=== PATIENT | male | born 1990 | race Two or more races ===

== ENCOUNTER 2021-05-06 20:02 | Emergency (ER) | payer OTHER, SELFPAY ==
--- NOTE | ~2021-05-06 | XR_ITS ---
EXAMINATION: XR ANKLE, LEFT CLINICAL INFORMATION: Twisting injury. Pain and swelling. COMPARISON: None TECHNIQUE: AP, lateral, and mortise views of the left ankle. FINDINGS: Lateral and anterior soft tissue swelling. No visible acute fracture or dislocation. Ankle mortise is congruent. Anterior process of the calcaneus, base of the 5th metatarsal appear intact. XR/XR ankle LT min 3V IMPRESSION: Prominent soft tissue swelling along the lateral anterior aspect of the ankle. No visible acute fracture or dislocation.
[2021-05-06 20:20] VITALS: BP 127/65; PULSE 94; RESP 16; TEMP 36.6; O2SAT 96; BMI 29.7
--- NOTE | 2021-05-06 22:30 | ED_ITS ---
HPI - Extremity Injury (Lower) General Chief Complaint: Extremity Injury, Lower Stated Complaint: ANKLE INJ Time Seen by Provider: 05/06/21 22:30 Source: patient Mode of arrival: ambulatory Limitations: no limitations History of Present Illness HPI Narrative: Patient is a 30-year-old male with no significant past medical history presenting after he twisted his ankle just prior to arrival. Patient states he was walking with a load of laundry, when he twisted his left ankle outward and then dropped filled basket of laundry on top of his left foot. He was unable to walk on immediately after but is okay if he walks on it gingerly now. He did not try anything to make it feel better and did not apply ice. Related Data Allergies Allergy/AdvReac Type Severity Reaction Status Date / Time bee pollen [BEE STINGS] Allergy Unknown UNKNOWN Unverified 08/13/20 18:57 mushroom Allergy Unknown UNKNOWN Unverified 08/13/20 18:57 shellfish derived Allergy Unknown UNKNOWN Unverified 08/13/20 18:57 [SHELLFISH DERIVED] Review of Systems Review of Systems: Yes all other systems are reviewed and are negative REPLACED BY [facility] Past Medical History Medical History No known health problems Social History Social History Advance Directives: No Advance Directives Information Provided: Yes Physical Exam Vital Signs: Vital Signs: Last Vital Signs Temp 98 F 05/06/21 20:20 Pulse 94 05/06/21 20:20 Resp 16 05/06/21 20:20 BP 127/65 05/06/21 20:20 Pulse Ox 96 05/06/21 20:20 Body Mass Index 29.7 Const: General: cooperative, healthy appearing, comfortable and no acute distress Nutritional Appearance: average body habitus Orientation/consciousness: patient oriented x3 HENMT: Head: Yes normal to inspection, Yes No palpable skull fracture present, Yes normocephalic and Yes atraumatic Resp: Effort & Inspection: normal respiratory effort and able to speak in complete sentences Neuro: General: patient oriented x3 Extrem: Left lower extremity: ankle Details: abnormal to inspection Details: other (Lateral malleolus swelling), tenderness Location: of the lateral malleolus, swelling Details: laterally and abnormal ROM Details: pain with active ROM and pain with passive ROM; no warmth, no abrasions, no lacerations, no ecchymosis and achilles tendon exam normal and foot Details: normal capillary refill, normal to inspection and toes with normal ROM; no tenderness MDM - Extremity Injury (Lower) Imaging Data ankle x-ray: Attestation: I personally reviewed and interpreted this imaging study as follows: Radiologist's impression: [address] [id number] ReportSigned Patient: Logan DorseyMR#: [id number]: 1990Acct:[id number]/Sex: 30 / MADM Date: 05/06/21Loc: HO.EDAttending Dr: Ordering Physician: Generic ED Physician Date of Service: 05/06/21 Procedure(s): XR ankle LT min 3V Accession Number(s): [id number] cc: Generic ED Physician~ EXAMINATION: XR ANKLE, LEFT CLINICAL INFORMATION: Twisting injury. Pain and swelling. COMPARISON: None TECHNIQUE: AP, lateral, and mortise views of the left ankle. FINDINGS: Lateral and anterior soft tissue swelling. No visible acute fracture or dislocation. Ankle mortise is congruent. Anterior process of the calcaneus, base of the 5th metatarsal appear intact. XR/XR ankle LT min 3V IMPRESSION: Prominent soft tissue swelling along the lateral anterior aspect of the ankle. No visible acute fracture or dislocation. Dictated By:SERA PA MDSigned By:<Electronically signed by SERA PA MD in OV>05/06/21 2100 DD/ 2030TD/TT: Regional Production Manager: LAY Discharge Plan Discharge Clinical Impression: Ankle sprain and strain Patient Disposition: Home, Self-Care Instructions: Ankle Sprain (ED) Additional Instructions: As discussed, if your pain does not improve a little bit each day, please follow-up with your primary care doctor and orthopedic doctor of your choosing, you may need a repeat x-ray or physical therapy. Please rest, apply ice a few times per day, use the Hang bandage for compression and elevate your foot a few times per day as well. Please use ibuprofen for pain control. If your pain is intolerable or even able to walk on it or you lose sensation in your toes are your foot, please return to the emergency department.
--- NOTE | 2021-05-06 22:48 | PC.NURSE ---
PCT WRAPPED LEFT ANKLE WITH KASEY WRAP FOR SUPPORT.
== END 2021-05-06 23:31 | disposition home or self-care (01) ==
PROVIDERS: Emergency Provider Emergency Medicine Emergency Medical Services
DX: S93.402A Sprain of unspecified ligament of left ankle, initial encounter (principal); S96.912A Strain of unspecified muscle and tendon at ankle and foot level, left foot, initial encounter; X50.1XXA Overexertion from prolonged static or awkward postures, initial encounter; Y93.E2 Activity, laundry; Y92.039 Unspecified place in apartment as the place of occurrence of the external cause; Y99.9 Unspecified external cause status
CPT/HCPCS: 73610; 99283

== ENCOUNTER 2021-11-03 12:04 | Emergency (ER) | payer OTHER, SELFPAY ==
--- NOTE | ~2021-11-03 | XR_ITS ---
EXAMINATION: XR CHEST CLINICAL INFORMATION: Cough COMPARISON: 04/21/2018 TECHNIQUE: Frontal view of the chest was obtained. FINDINGS: The lungs are well expanded. There is no focal consolidation, edema, or effusion. No pneumothorax. The cardiomediastinal silhouette is within normal limits. No acute osseous abnormality. XR/XR chest 1V IMPRESSION: Clear lungs.
[2021-11-03 12:33] VITALS: BP 144/83; PULSE 61; RESP 18; TEMP 36.8; O2SAT 97; BMI 29.7
[2021-11-03 14:35] LABS: MANUAL DIFF FLAG NO
[2021-11-03 14:37] LABS: Basophils Percent Auto 0.4 % (0-2); Eosinophils Absolute Auto 0.1 X10*3/uL (0.0-0.4); Eosinophils Percent Auto 0.7 % (0-4); Hematocrit 47.8 % (42.0-52.0); Hemoglobin 16.7 g/dl (14.0-18.0); Imm Gran Abs Auto 0.02 X10*3/uL (0.00-0.03); Imm Gran Pct Auto 0.3 % (0.0-0.4); Lymphocytes Absolute Auto 2.7 X10*3/uL (1.2-4.9); Lymphocytes Percent Auto 37.1 % (20-40); Mean Corpuscular HGB Conc 34.9 g/dl (31.0-36.0); Mean Corpuscular Hemoglobin 35.8 pg (27.0-33.0); Mean Corpuscular Volume 102.4 fL (80.0-98.0); Mean Platelet Volume 9.2 fL (9.4-12.4); Monocytes Absolute Auto 0.5 X10*3/uL (0.1-1.2); Monocytes Percent Auto 7.5 % (2-11); Neutrophils Absolute Auto 3.9 x10*3/uL (2.0-8.3); Platelet Count 258 X10*3/uL (160-400); Red Blood Count 4.67 X10*6/uL (4.60-5.80); Red Cell Distribution Width 11.9 % (11.0-16.0); White Blood Count 7.2 X10*3/uL (4.8-10.8)
[2021-11-03 14:49] LABS: Anion Gap 14 (12-20); Blood Urea Nitrogen 12 mg/dL (9-16); Calcium 9.9 mg/dL (8.4-10.2); Carbon Dioxide 25 mmol/L (22-29); Chloride 107 mmol/L (96-108); Creatinine Clr Calc Pharmacy 93.6; Estimated Glomerular Filt Rate > 60; Glucose Random 75 mg/dL (60-115); Potassium 3.9 mmol/L (3.3-5.1); Sodium 142 mmol/L (135-145)
[2021-11-03 14:51] LABS: COVID-19 Test Negative (Negative); IDNOW Serial# 9DD0AD1C
== END 2021-11-03 17:52 | disposition left against medical advice (07) ==
PROVIDERS: Emergency Provider Emergency Medicine
DX: R05.9 Cough, unspecified (principal); Z20.822 Contact with and (suspected) exposure to COVID-19
CPT/HCPCS: 36415; 71045; 80048; 85025; 87635; 99282; 99283

== ENCOUNTER 2022-03-28 11:05 | Emergency (ER) | payer OTHER, SELFPAY | END 2022-03-28 13:25 | disposition left against medical advice (07) | PROVIDERS: Emergency Provider Emergency Medicine | DX: R11.10 Vomiting, unspecified (principal); R19.7 Diarrhea, unspecified ==

== ENCOUNTER 2022-07-28 11:19 | Emergency (ER) | payer OTHER, SELFPAY ==
--- NOTE | 2022-07-28 | ECG_ITS ---
Test Reason : sob Blood Pressure : / mmHG Vent. Rate : 094 BPM Atrial Rate : 094 BPM P-R Int : 196 ms QRS Dur : 100 ms QT Int : 362 ms P-R-T Axes : 045 -01 050 degrees QTc Int : 452 ms Normal sinus rhythm Normal ECG When compared with ECG of 13-FEB-2019 14:30, NE interval has decreased Referred By: Generic ED Physician Electronically Signed By:CARSON JOHNSON
--- NOTE | ~2022-07-28 | XR_ITS ---
EXAMINATION: XR CHEST CLINICAL INFORMATION: Shortness of breath, COVID positive. COMPARISON: 11/03/2021 chest radiograph. TECHNIQUE: Frontal view of the chest was obtained. FINDINGS: No significant abnormality is noted involving the heart, lungs, mediastinum, bony thorax or soft tissues. XR/XR chest 1V IMPRESSION: No acute cardiopulmonary process.
[2022-07-28 11:30] VITALS: BP 126/67; PULSE 98; RESP 18; TEMP 37.3; O2SAT 97; BMI 32.3
[2022-07-28 11:49] LABS: MANUAL DIFF FLAG NO
[2022-07-28 11:53] LABS: Basophils Percent Auto 0.5 % (0-2); Eosinophils Absolute Auto 0.2 X10*3/uL (0.0-0.4); Eosinophils Percent Auto 2.6 % (0-4); Hematocrit 42.6 % (42.0-52.0); Hemoglobin 14.2 g/dl (14.0-18.0); Imm Gran Abs Auto 0.02 X10*3/uL (0.00-0.03); Imm Gran Pct Auto 0.3 % (0.0-0.4); Lymphocytes Absolute Auto 1.6 X10*3/uL (1.2-4.9); Lymphocytes Percent Auto 25.4 % (20-40); Mean Corpuscular HGB Conc 33.3 g/dl (31.0-36.0); Mean Corpuscular Hemoglobin 34.8 pg (27.0-33.0); Mean Corpuscular Volume 104.4 fL (80.0-98.0); Mean Platelet Volume 8.8 fL (9.4-12.4); Monocytes Absolute Auto 0.4 X10*3/uL (0.1-1.2); Monocytes Percent Auto 6.6 % (2-11); Neutrophils Percent Auto 64.6 % (45-73); Platelet Count 237 X10*3/uL (160-400); Red Blood Count 4.08 X10*6/uL (4.60-5.80); Red Cell Distribution Width 12.8 % (11.0-16.0); White Blood Count 6.2 X10*3/uL (4.8-10.8)
[2022-07-28 12:04] LABS: COVID-19 Test Positive (Negative)
[2022-07-28 12:08] LABS: Alanine Aminotransferase 27 U/L (0-40); Albumin Level 4.2 g/dL (3.5-5.0); Alkaline Phosphatase 84 U/L (39-117); Anion Gap 16 (12-20); Aspartate Amino Transferase 19 U/L (5-37); Bilirubin Direct < 0.2 mg/dL (0.0-0.5); Bilirubin Total 0.3 mg/dL (0.0-1.0); Blood Urea Nitrogen 13 mg/dL (9-16); Calcium 8.5 mg/dL (8.4-10.2); Carbon Dioxide 22 mmol/L (22-29); Chloride 110 mmol/L (96-108); Creatinine Clr Calc Pharmacy 103.5; Estimated Glomerular Filt Rate > 60; Glucose Random 112 mg/dL (60-115); Lipase 29 U/L (8-78); Potassium 3.9 mmol/L (3.3-5.1); Sodium 144 mmol/L (135-145); Total Protein 6.8 g/dL (6.5-8.0)
[2022-07-28 12:12] LABS: Troponin-I High Sensitivity < 3.5 ng/L (<3.5-35.0)
[2022-07-28 12:15] VITALS: BP 124/65; PULSE 85; RESP 14; TEMP 36.8; O2SAT 97
--- NOTE | 2022-07-28 13:00 | ED.GENADULT ---
HPI - General Adult General Chief complaint: Abdominal Pain Stated complaint: Covid positive, internal bleeding, abd pain Time Seen by Provider: 07/28/22 11:47 History of Present Illness HPI narrative: Patient is a 31-year-old male with a past medical history of asthma, presenting today with complaints of + home COVID test on 07/25, productive cough, shortness of breath, chest discomfort worse when coughing/deep breathing and movement, fatigue, malaise x4 days and also reports abdominal pain w/ brbpr x few weeks. States abdominal pain worse after eating with associated nausea and diarrhea. Admits to coughing up some blood-tinged sputum. 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 Reports smoking marijuana daily, denies tobacco use. Denies chills, dysuria/hematuria, pedal edema Related Data Previous Rx's Medication Instructions Recorded famotidine 20 mg tablet (Pepcid) 20 mg PO DAILY #14 tabs 07/28/22 prednisone 20 mg tablet 40 mg PO DAILY 5 days #10 tabs 07/28/22 Allergies Allergy/AdvReac Type Severity Reaction Status Date / Time bee pollen [BEE STINGS] Allergy Unknown UNKNOWN Verified 07/28/22 11:29 mushroom Allergy Unknown UNKNOWN Verified 07/28/22 11:29 shellfish derived Allergy Unknown UNKNOWN Verified 07/28/22 11:29 [SHELLFISH DERIVED] Review of Systems Review of Systems: Constitutional: + Fever, + Chills, + Fatigue, + Malaise ENT/Mouth: No Hearing loss, No Ear Pain, + Nasal Congestion, No Sinus Pain, No Hoarseness, No sore throat, + Rhinorrhea, + Swallowing Difficulty Eyes: No Eye Pain, No Swelling, No Redness, No Foreign Body, No Discharge, No Vision Changes Cardiovascular: + Chest Pain, + SOB, No Dyspnea on Exertion, No Orthopnea, No Edema, + Palpitations Respiratory: + Cough, + Sputum, + Wheezing, No Smoke Exposure, + Dyspnea Gastrointestinal: + Nausea, + Vomiting, + Diarrhea, No Constipation, + Abdominal pain, + Hematochezia, No Melena Genitourinary: No irregular bleeding, No Dysuria, No Urinary Frequency, No Hematuria, No Urinary Incontinence/retention, No Urgency, No Flank Pain, No Urinary Flow Changes, No Hesitancy Musculoskeletal: No joint pain, No Myalgias, No Joint Swelling Skin: No Skin Lesions, No rash Neuro: No Weakness, No Numbness, No Paresthesias, No Loss of Consciousness, No Dizziness, +Headache Psych: No Anxiety/Panic, No Depression, No SI/HI/AH/VH, No Social Issues, Heme/Lymph: No Bruising, No Bleeding,No Lymphadenopathy Endocrine: No Polyuria, No Polydipsia, No Temperature Intolerance Yes all other systems are reviewed and are negative Constitutional: Constitutional: Reports as per [facility] Past Medical History Attestation statement: The following information was validated with the patient. Medical History (Updated 07/28/22 @ 14:29 by TAMMY Barrientos) Asthma Heart murmur Social History Social History Patient Tobacco Use Status: Never used Tobacco Use of substances other than those prescribed or required for medical reasons: No Advance Directives: No Advance Directives Information Provided: No Physical Exam ED Vital Signs: Vital Signs - 24 hr 07/28/22 11:30 07/28/22 12:15 Temperature 99.2 F 98.3 F Pulse Rate 98 85 Respiratory Rate 18 14 Blood Pressure 126/67 124/65 Pulse Oximetry 97 97 Oxygen Delivery Method Room Air Room Air BMI result Body Mass Index 32.3 Const General: cooperative, healthy appearing and no acute distress Orientation/consciousness: patient oriented x3 Limitations: no limitations HENMT Head: Yes normal to inspection and Yes atraumatic Ears: hearing grossly normal bilaterally, external ears normal and TM's normal bilaterally (mild serous effusions bilaterally) General nose exam: Normal external nose present and Normal nares present Face and sinus: Yes normal facial exam Mouth: Normal oral and palatal mucosa present Teeth and gingiva: dentition normal Throat: Yes posterior oropharynx normal Eyes General: appearance normal, both eyes and all related structures EOM: EOMs intact bilaterally Neck Neck: Yes normal visual inspection and Yes no meningeal signs Chest Chest palpation & inspection: normal inspection of the chest and localized rib tenderness with anteroposterior compression Resp Other: Mildly course breath sounds Effort & Inspection: normal respiratory effort, able to speak in complete sentences and no respiratory distress Auscultation: clear to auscultation bilaterally, no rhonchi and no wheezes Cardio Rate: regular rate Heart sounds: S1 normal heart sound present, S2 normal heart sound present and Murmur heart sound present GI Inspection: Yes normal to inspection Palpation (GI): Soft to palpation, Tenderness to palpation present (GI) in the epigastrum, no guarding and not rigid Rectal Exam - Male: Yes visual inspection normal, Yes normal sphincter tone, No abnormal sphincter tone, Yes heme negative stool, No External hemorrhoid(s) present, No Internal hemorrhoid(s) present, No Laceration(s) present (GI) and No Anal fissure(s) present General: Yes no CVA tenderness Back/Spine/Pelvis Back: no CVA tenderness Skin General skin exam: no rashes or lesions noted Rashes: no rashes Wounds: no wounds Neuro General: patient oriented x3, tone normal and no meningeal signs Gait exam (Neuro): Normal gait present Extrem General: Yes normal to inspection Course Course Course Narrative: - + COVID. H/H stable at 14.2/42.6, EKG nonischemic. Occult stool negative >> Low suspicion for active GI bleed at this time. XR chest 1V IMPRESSION: No acute cardiopulmonary process. -1428--D-dimer negative. Results discussed with patient including worrisome signs and symptoms and strict return precautions, and when to return to the emergency department. They verbalized understanding and feel safe for discharge at this time. ? Medical Decision Making MDM Narrative Medical decision making narrative: Patient is a 31-year-old male with a past medical history of asthma, presenting today with complaints of + home COVID test on 07/25, productive cough, shortness of breath, chest discomfort worse when coughing/deep breathing and movement, fatigue, malaise x4 days and also reports abdominal pain w/ brbpr x few weeks. On exam VSS, NAD, nontoxic appearing, mildly coarse lung sounds, no appreciable wheeze, talking in complete sentences. Abdomen soft with mild epigastric tenderness, no rebound or guarding. On rectal exam no appreciable hemorrhoids internal or external, no active bleeding. Concern for symptoms secondary to COVID-19 vs viral pneumonia vs PE vs costochondritis. Rule out ACS. Lower suspicion for bacterial pneumonia or CHF. Concern for gastritis vs GI bleed vs hemorrhoidal bleeding vs ? pancreatitis. Lower suspicion for appendicitis/diverticulitis Plan: EKG, labs, occult stool, CXR, Duoneb Lab Data Result diagrams: 07/28/22 11:42 07/28/22 11:42 Labs: Lab Results 07/28/22 07/28/22 07/28/22 Range/Units 11:42 11:42 11:42 WBC 6.2 (4.8-10.8) X10*3/uL RBC 4.08 L (4.60-5.80) X10*6/uL Hgb 14.2 (14.0-18.0) g/dl Hct 42.6 (42.0-52.0) % MCV 104.4 H (80.0-98.0) fL MCH 34.8 H (27.0-33.0) pg MCHC 33.3 (31.0-36.0) g/dl RDW 12.8 (11.0-16.0) % Plt Count 237 (160-400) X10*3/uL MPV 8.8 L (9.4-12.4) fL Immature Gran % (Auto) 0.3 (0.0-0.4) % Neut % (Auto) 64.6 (45-73) % Lymph % (Auto) 25.4 (20-40) % [place] % (Auto) 6.6 (2-11) % Eos % (Auto) 2.6 (0-4) % Baso % (Auto) 0.5 (0-2) % Lymph # (Auto) 1.6 (1.2-4.9) X10*3/uL [place] # (Auto) 0.4 (0.1-1.2) X10*3/uL Eos # (Auto) 0.2 (0.0-0.4) X10*3/uL Baso # (Auto) 0.0 (0.0-0.2) X10*3/uL Abs Immat Gran (auto) 0.02 (0.00-0.03) X10*3/uL Absolute Neuts (auto) 4.0 (2.0-8.3) x10*3/uL Absolute Nucleated RBC 0.000 (0.0-0.012) X10*3/uL Nucleated RBC % (auto) 0.0 (0.0-0.2) /100WBC D-Dimer High Sensitivty NG/ML Sodium 144 (135-145) mmol/L Potassium 3.9 (3.3-5.1) mmol/L Chloride 110 H (96-108) mmol/L Carbon Dioxide 22 (22-29) mmol/L Anion Gap 16 (12-20) BUN 13 (9-16) mg/dL Creatinine 1.11 (0.5-1.4) mg/dL Estim Creat Clear Calc 103.5 Estimated GFR > 60 Random Glucose 112 D (60-115) mg/dL Calcium 8.5 D (8.4-10.2) mg/dL Magnesium 2.2 (1.6-2.6) mg/dL Total Bilirubin 0.3 (0.0-1.0) mg/dL Direct Bilirubin < 0.2 (0.0-0.5) mg/dL AST 19 (5-37) U/L ALT 27 (0-40) U/L Alkaline Phosphatase 84 (39-117) U/L Troponin I High Sens < 3.5 (<3.5-35.0) ng/L Total Protein 6.8 (6.5-8.0) g/dL Albumin 4.2 (3.5-5.0) g/dL Lipase 29 (8-78) U/L Stool Occult Blood (NEGATIVE) COVID-19 (ADELA) (Negative) COVID-19 Clin Com 07/28/22 07/28/22 07/28/22 Range/Units 11:42 13:22 13:43 WBC (4.8-10.8) X10*3/uL RBC (4.60-5.80) X10*6/uL Hgb (14.0-18.0) g/dl Hct (42.0-52.0) % MCV (80.0-98.0) fL MCH (27.0-33.0) pg MCHC (31.0-36.0) g/dl RDW (11.0-16.0) % Plt Count (160-400) X10*3/uL MPV (9.4-12.4) fL Immature Gran % (Auto) (0.0-0.4) % Neut % (Auto) (45-73) % Lymph % (Auto) (20-40) % [place] % (Auto) (2-11) % Eos % (Auto) (0-4) % Baso % (Auto) (0-2) % Lymph # (Auto) (1.2-4.9) X10*3/uL [place] # (Auto) (0.1-1.2) X10*3/uL Eos # (Auto) (0.0-0.4) X10*3/uL Baso # (Auto) (0.0-0.2) X10*3/uL Abs Immat Gran (auto) (0.00-0.03) X10*3/uL Absolute Neuts (auto) (2.0-8.3) x10*3/uL Absolute Nucleated RBC (0.0-0.012) X10*3/uL Nucleated RBC % (auto) (0.0-0.2) /100WBC D-Dimer High Sensitivty < 150 NG/ML Sodium (135-145) mmol/L Potassium (3.3-5.1) mmol/L Chloride (96-108) mmol/L Carbon Dioxide (22-29) mmol/L Anion Gap (12-20) BUN (9-16) mg/dL Creatinine (0.5-1.4) mg/dL Estim Creat Clear Calc Estimated GFR Random Glucose (60-115) mg/dL Calcium (8.4-10.2) mg/dL Magnesium (1.6-2.6) mg/dL Total Bilirubin (0.0-1.0) mg/dL Direct Bilirubin (0.0-0.5) mg/dL AST (5-37) U/L ALT (0-40) U/L Alkaline Phosphatase (39-117) U/L Troponin I High Sens (<3.5-35.0) ng/L Total Protein (6.5-8.0) g/dL Albumin (3.5-5.0) g/dL Lipase (8-78) U/L Stool Occult Blood NEGATIVE (NEGATIVE) COVID-19 (ADELA) Positive A (Negative) COVID-19 Clin Com See Note Discharge Plan Discharge Clinical Impression: COVID-19, Bright red rectal bleeding Patient Disposition: Home, Self-Care Instructions: Rectal Bleeding (ED), COVID-19 (Coronavirus Disease 2019) (ED) Additional Instructions: Your blood work and chest x-ray were unremarkable. It your stool was negative for blood. It is very important for you to follow-up with Gastroenterology. Start taking Pepcid to help reduce the acid in her stomach. Prednisone as a steroid which will help with your shortness of breath. Continue using her asthma inhalers at home. If symptoms persist or worsening of constant worsening shortness of breath, chest discomfort or abdominal pain please return to emergency department At this time you will be okay for discharge. Please self isolate for 5-10 days. Do not expose yourself to others. You may not go to work or school. Please continue to follow cold instructions and wash your hands frequently. You may take Tylenol / Motrin as directed on the bottle for pain or fever. If you have constant or persistent shortness of breath, fever unresolved with medications, chest pain, or your unable to eat or drink please return to the ED CDC Guidelines for home isolation: - Stay away from others - WEAR A MASK if you are sick AND STAY HOME - Cover your mouth and nose with a tissue when you cough or sneeze. Dispose of tissues in a lined trash can and wash your hands immediately with soap and water for at least 20 seconds. If soap and water are not available, clean hands with alcohol-based hand home therapy teacher that contains at least 60% alcohol. - Clean your hands often with soap and water for at least 20 seconds - Avoid touching your eyes, nose and mouth with unwashed hands - Do not share dishes, drinking glasses, cups, eating utensils, towels, or bedding with other people in your home. After using these items, wash them thoroughly with soap and water or put in the functional architect. - Clean high-touch surfaces in your isolation area ( sick room and bathroom) every day; let a caregiver clean and disinfect high-touch surfaces in other areas of the home. Clean the area or item with soap and water or another detergent if it is dirty. Then, use a household disinfectant. - Limit contact with pets and animals: If you must care for a pet, wash your hands before and after interacting with them) Prescriptions: New famotidine [Pepcid] 20 mg tablet 20 mg PO DAILY Qty: 14 0RF prednisone 20 mg tablet 40 mg PO DAILY 5 Days Qty: 10 0RF Referrals: Ellen Rodriguez MD [Primary Care Provider] - Sydnee Perez MD [Physician] - 5 days (Call to make appointment)
[2022-07-28 13:17] LABS: Magnesium 2.2 mg/dL (1.6-2.6)
[2022-07-28 13:35] LABS: OBS1 NEGATIVE (NEGATIVE)
[2022-07-28 13:36] LABS: OBS Int Ctl Valid YES
[2022-07-28 14:11] LABS: D Dimer High Sensitivity < 150 NG/ML
[2022-07-28] MEDS: Albuterol Sulfate 90 MCG 8 GM INHALER 4 PUFF INHALE (14:24)
[2022-07-28 14:27] VITALS: BP 128/71; PULSE 70; RESP 18; TEMP 37.4; O2SAT 98
== END 2022-07-28 14:50 | disposition home or self-care (01) ==
PROVIDERS: Physician Assistant; Emergency Provider Student in an Organized Health Care Education/Training Program; PCP Internal Medicine
DX: U07.1 COVID-19 (principal); K62.5 Hemorrhage of anus and rectum
CPT/HCPCS: 36415; 71045; 80053; 82248; 82272; 83690; 83735; 84484; 85025; 85379; 87635; 93005; 99284

== ENCOUNTER 2024-06-17 08:59 | Emergency (ER) | payer OTHER, SELFPAY ==
--- NOTE | ~2024-06-17 | CT_ITS ---
EXAMINATION: CT ABDOMEN AND PELVIS WITHOUT CONTRAST CLINICAL INFORMATION: Abdominal pain, vomiting and diarrhea COMPARISON: CT abdomen pelvis 07/06/2016 TECHNIQUE: Multidetector volumetric imaging was performed from the superior aspect of the liver through the pubic symphysis. Sagittal and coronal reformatted images were obtained on the technologist's workstation. This CT examination was performed using dose optimization techniques as appropriate, variously including the following: *Automated exposure control *Adjustment of mA and/or kV according to patient size (this includes techniques or standardized protocols for targeted exams where dose is matched to indication/reason for exam; i.e. extremities or head) *Use of iterative reconstruction technique DLP: 588 mGy-cm FINDINGS: LUNG BASES: The visualized lung bases are unremarkable. LIVER, GALLBLADDER, AND BILIARY TREE: The liver is mildly enlarged at 17.5 cm in cephalocaudad dimension. Attenuation is normal. No focal hepatic lesion or biliary ductal dilatation is present. The gallbladder is unremarkable with no evidence of radiopaque gallstones, gallbladder wall thickening, or obvious pericholecystic inflammatory changes. PANCREAS: Unremarkable. SPLEEN: Unremarkable. ADRENAL GLANDS: Unremarkable. KIDNEYS AND URETERS: The kidneys are normal in size, shape, and attenuation. No hydronephrosis, hydroureter, or calculi seen. No perinephric stranding. BLADDER: Unremarkable. GASTROINTESTINAL TRACT: The small and large bowel are unremarkable. The appendix is unremarkable. ABDOMINAL WALL: No significant hernia is appreciated. LYMPH NODES: Normal. VASCULAR: Unremarkable. PELVIC VISCERA: Unremarkable. OSSEOUS STRUCTURES: Unremarkable. CT/CT abdomen pelvis wo IV con IMPRESSION: No significant abnormality. Fleischner guidelines were followed.
[2024-06-17 09:05] VITALS: BP 112/66; PULSE 82; RESP 18; TEMP 36.9; O2SAT 96; BMI 28.5
[2024-06-17 09:26] LABS: MANUAL DIFF FLAG NO
[2024-06-17 09:28] LABS: Basophils Percent Auto 0.1 % (0-2); Eosinophils Absolute Auto 0.1 X10*3/uL (0.0-0.4); Eosinophils Percent Auto 0.7 % (0-4); Hematocrit 46.5 % (42.0-52.0); Hemoglobin 16.4 g/dl (14.0-18.0); Imm Gran Abs Auto 0.04 X10*3/uL (0.00-0.03); Imm Gran Pct Auto 0.4 % (0.0-0.4); Lymphocytes Absolute Auto 1.7 X10*3/uL (1.2-4.9); Lymphocytes Percent Auto 15.8 % (20-40); Mean Corpuscular HGB Conc 35.3 g/dl (31.0-36.0); Mean Corpuscular Hemoglobin 36.4 pg (27.0-33.0); Mean Corpuscular Volume 103.1 fL (80.0-98.0); Monocytes Absolute Auto 0.8 X10*3/uL (0.1-1.2); Monocytes Percent Auto 7.3 % (2-11); Neutrophils Absolute Auto 8.1 x10*3/uL (2.0-8.3); Neutrophils Percent Auto 75.7 % (45-73); Platelet Count 267 X10*3/uL (160-400); Red Blood Count 4.51 X10*6/uL (4.60-5.80); Red Cell Distribution Width 12.1 % (11.0-16.0); White Blood Count 10.7 X10*3/uL (4.8-10.8)
[2024-06-17 09:39] LABS: IDNOW Serial# 08D9AD1C; Strep A Nucleic Acid Negative (Negative)
[2024-06-17 09:46] LABS: Alanine Aminotransferase 17 U/L (0-40); Albumin Level 4.8 g/dL (3.5-5.0); Alkaline Phosphatase 61 U/L (39-117); Anion Gap 15 (12-20); Aspartate Amino Transferase 13 U/L (5-37); Bilirubin Total 0.8 mg/dL (0.0-1.0); Blood Urea Nitrogen 13 mg/dL (9-16); Calcium 9.6 mg/dL (8.4-10.2); Carbon Dioxide 26 mmol/L (22-29); Chloride 104 mmol/L (96-108); Creatinine Clr Calc Pharmacy 69.5; Estimated Glomerular Filt Rate 53; Glucose Random 99 mg/dL (60-115); Sodium 141 mmol/L (135-145); Total Protein 7.6 g/dL (6.5-8.0)
[2024-06-17 09:58] VITALS: BP 112/66; PULSE 82; RESP 18; TEMP 36.9; O2SAT 96
[2024-06-17 10:12] LABS: Influenza A PCR NEGATIVE (Negative); Influenza B PCR NEGATIVE (Negative); Resp Syncy Virus RNA Qual PCR NEGATIVE (Negative); SARS COV2 PCR INHOUSE NEGATIVE (Negative)
--- NOTE | 2024-06-17 10:20 | ED.GENADULT ---
HPI - General Adult General Chief complaint: Nausea/Vomiting/Diarrhea Stated complaint: Abd pain Time Seen by Provider: 06/17/24 09:34 Source: patient Mode of arrival: ambulatory Limitations: no limitations History of Present Illness ED Provider: Marycarmen Lipscomb PA-C HPI narrative: This is a 33 year old male with history of asthma presenting with nausea, vomiting, diarrhea, and abdominal pain x 1 day. Reports 4-5 episodes of vomiting and loose stools overnight last night. He tested positive for COVID 1 week ago and felt extreme sob at that time which has since resolved. He has a history of rectal bleeding and blood in his urine but he reports last episode was weeks ago, denies blood in stool or urine currently. He is also having difficulty providing a urine sample, he feels the urge to urinate but is unable to. Denies fevers, chills, sob, chest pain, headache, dizziness, visual changes. Related Data Previous Rx's ?Medication ?Instructions ?Recorded famotidine 20 mg tablet (Pepcid) 20 mg PO DAILY #14 tabs 07/28/22 prednisone 20 mg tablet 40 mg (2 x 20 mg) PO DAILY 5 days 07/28/22 #10 tabs loperamide 2 mg capsule 2 mg PO Q6H PRN loose stool #20 06/17/24 caps ondansetron HCl 4 mg tablet 4 mg PO Q8H PRN nausea and 06/17/24 vomiting #14 tabs Allergies Allergy/AdvReac Type Severity Reaction Status Date / Time bee pollen [BEE STINGS] Allergy Unknown UNKNOWN Verified 06/17/24 09:09 mushroom Allergy Unknown UNKNOWN Verified 06/17/24 09:09 shellfish derived Allergy Unknown UNKNOWN Verified 06/17/24 09:09 [SHELLFISH DERIVED] Review of Systems Review of Systems: Yes all other systems are reviewed and are negative PMFSH Past Medical History Attestation statement: The following information was validated with the patient. Source: old records reviewed and nursing notes reviewed Medical History Heart murmur Asthma Social History Social History Alcohol intake: current Alcohol intake frequency: holidays/special occasions only Patient Tobacco Use Status: Never used Tobacco Smoked in Last 30 Days: No Advance Directives: No Advance Directives Information Provided: Yes Do you have a plan to hurt others: No Plan Physical Exam ED Vital Signs: Vital Signs - 24 hr 06/17/24 09:05 06/17/24 09:58 Temperature 98.4 F 98.4 F Pulse Rate 82 82 Respiratory Rate 18 18 Blood Pressure 112/66 112/66 Pulse Oximetry 96 96 Oxygen Delivery Method Room Air Room Air BMI result Body Mass Index 28.5 vss Appearance: Alert.? Oriented X3.? No acute distress.? Head: Normocephalic, atraumatic, no step-offs or deformities Eyes: Pupils equal, round and reactive to light.? Neck: Normal inspection.? Neck supple.? CVS: Normal heart rate and rhythm.? Pulses normal.?+ systolic murmur heard at left sternal border. Respiratory: No respiratory distress.? Breath sounds normal.? Abdomen: Soft, +ttp epigastric area, no peritoneal signs Skin: Skin warm and dry.? Normal skin color.? Normal skin turgor.? Extremities: No lower extremity edema.? No calf ttp. 5/5 strength to bilateral upper and lower extremities Neuro: Oriented X 3.? No motor deficit.? No sensory deficit. CN 2-12 intact Course Reevaluation(s) Reevaluation #1: CBC with no acute findings needing intervention. Chemistry with very mild elevation in creatinine. UA unremarkable. Flu, COVID, RSV and strep negative. CT abdomen pelvis with no significant abnormality. Normal appendix. Patient feeling better. Will give him Zofran and loperamide for home this is likely viral illness. Educated patient on diagnosis and treatment plan, answered all question, patient verbalizes understanding. At this time patient will be discharged home, advised to return with new or worsening symptoms. Educated on worrisome signs and symptoms and when to return. At this time I feel comfortable discharge home. Time: 12:28 Medical Decision Making Medical Decision Making MDM Narrative: 33 yo male with history of asthma presenting with abdominal pain, vomiting, diarrhea, and difficulty urinating x 1 day. PE - +ttp epigastric area, no peritoneal signs Hx and PE concerning for viral gastroenteritis vs gastritis. Unlikely appendicitis, cholecystitis, pancreatitis, peritonitis, dissection,acute abdomen. Other differentials include flu vs covid. Plan - labs, imaging, urine Differential Diagnosis Differential Diagnoses: The differential diagnosis associated with the presentation includes Hx and PE concerning for viral gastroenteritis vs gastritis. Unlikely appendicitis, cholecystitis, pancreatitis, peritonitis, dissection,acute abdomen. Other differentials include flu vs covid. Admission/Observation Consideration of admission/observation: Escalation of care including admission/observation considered Lab Data MDM Lab Attestation statement: I reviewed the patient's lab results. 06/17/24 09:21 06/17/24 09:21 Labs: Lab Results 06/17/24 06/17/24 Range/Units 09:21 11:21 WBC 10.7 (4.8-10.8) X10*3/uL RBC 4.51 L (4.60-5.80) X10*6/uL Hgb 16.4 (14.0-18.0) g/dl Hct 46.5 (42.0-52.0) % MCV 103.1 H (80.0-98.0) fL MCH 36.4 H (27.0-33.0) pg MCHC 35.3 (31.0-36.0) g/dl RDW 12.1 (11.0-16.0) % Plt Count 267 (160-400) X10*3/uL MPV 9.0 L (9.4-12.4) fL Immature Gran % (Auto) 0.4 (0.0-0.4) % Neut % (Auto) 75.7 H (45-73) % Lymph % (Auto) 15.8 L (20-40) % [place] % (Auto) 7.3 (2-11) % Eos % (Auto) 0.7 (0-4) % Baso % (Auto) 0.1 (0-2) % Lymph # (Auto) 1.7 (1.2-4.9) X10*3/uL [place] # (Auto) 0.8 (0.1-1.2) X10*3/uL Eos # (Auto) 0.1 (0.0-0.4) X10*3/uL Baso # (Auto) 0.0 (0.0-0.2) X10*3/uL Abs Immat Gran (auto) 0.04 H (0.00-0.03) X10*3/uL Absolute Neuts (auto) 8.1 (2.0-8.3) x10*3/uL Absolute Nucleated RBC 0.000 (0.0-0.012) X10*3/uL Nucleated RBC % (auto) 0.0 (0.0-0.2) /100WBC Sodium 141 (135-145) mmol/L Potassium 4.0 (3.3-5.1) mmol/L Chloride 104 (96-108) mmol/L Carbon Dioxide 26 (22-29) mmol/L Anion Gap 15 (12-20) BUN 13 (9-16) mg/dL Creatinine 1.53 H (0.5-1.4) mg/dL Estim Creat Clear Calc 69.5 Estimated GFR 53 Random Glucose 99 (60-115) mg/dL Calcium 9.6 D (8.4-10.2) mg/dL Total Bilirubin 0.8 (0.0-1.0) mg/dL AST 13 (5-37) U/L ALT 17 (0-40) U/L Alkaline Phosphatase 61 (39-117) U/L Total Protein 7.6 (6.5-8.0) g/dL Albumin 4.8 (3.5-5.0) g/dL Urine Color Yellow Urine Appearance Cloudy Urine pH 5.5 (5.0-9.0) Ur Specific [employer] 1.025 (1.005-1.025) Urine Protein Trace (Neg-Trace) mg/dL Urine Glucose (UA) Negative (Negative) mg/dL Urine Ketones Trace (Negative) mg/dL Urine Blood Negative (Negative) Urine Nitrite Negative (Negative) Ur Leukocyte Esterase Small (1+) H (Negative) Urine RBC 0-2 (0-2) /HPF Urine WBC 0-5 (0-5) /HPF Ur Squamous Epith Cells 3-5 (0-2) /HPF Urine Bacteria None Seen (None Seen) Hyaline Casts 0-2 (0-2) /LPF Influenza Type A (PCR) NEGATIVE (Negative) Influenza Type B (PCR) NEGATIVE (Negative) RSV RNA Qual (PCR) NEGATIVE (Negative) SARS-CoV-2 RNA (RT-PCR) NEGATIVE (Negative) S. pyogenes GrpA IVAN Negative (Negative) Independent Interpretation I performed an independent interpretation of an: CT Scan (CT/CT abdomen pelvis wo IV con IMPRESSION: No significant abnormality. Fleischner guidelines were followed.) Radiology Impression Discussion of test interpretation with radiology: I have reviewed the radiologist's reading. External Record Review External record reviewed: Office record, Outpatient record, Prior outpatient labs and Prior outpatient radiology Prescription Management I considered prescription management with: Other (zofran, loperamide ) Chronic Conditions Patient?s care impacted by: Other (asthma ) Critical Care Time Critical Care Time Critical Care Time: No Discharge Plan Discharge Clinical Impression: Viral illness Patient Disposition: Home, Self-Care Instructions: Viral Syndrome (ED) Additional Instructions: Take your medications as prescribed. If you were prescribed antibiotics today, it is important that you take your medication to their entirety, do not skip any doses, do not finish them early. Follow-up with your primary care provider this week. Return to the emergency department with new or worsening symptoms. Such as fevers, chills, chest pain, shortness of breath, nausea, vomiting, dizziness, headache, vision changes, lethargy In case of emergency call 911 Prescriptions: New loperamide 2 mg capsule 2 mg PO Q6H PRN (Reason: loose stool) Qty: 20 0RF ondansetron HCl 4 mg tablet 4 mg PO Q8H PRN (Reason: nausea and vomiting) Qty: 14 0RF No Action famotidine [Pepcid] 20 mg tablet 20 mg PO DAILY Qty: 14 0RF prednisone 20 mg tablet 40 mg PO DAILY 5 Days Qty: 10 0RF Referrals: Physician,Unknown J [Primary Care Provider] - 2 days Stand Alone Forms: Work/School Release Print Language: [place]alander
[2024-06-17 11:35] LABS: Appearance Urine Cloudy; Color Urine Yellow; Glucose Urine UA Negative (Negative); Leukocyte Esterase Urine Small (1+) (Negative); Nitrite Urine Negative (Negative); PH 5.5 (5.0-9.0); Specific Gravity - Urine 1.025 (1.005-1.025); UMIC TRIGGER UACC YES; Urine Blood Negative (Negative); Urine Ketones Trace mg/dL (Negative); Urine Protein Trace mg/dL (Neg-Trace)
[2024-06-17 11:50] LABS: Bacteria Urine None Seen (None Seen); Hyaline Casts Urine 0-2 /LPF (0-2); RBC Urine 0-2 /HPF (0-2); UACC Culture Trigger YES; WBC Urine 0-5 /HPF (0-5)
[2024-06-17] MEDS: 0.9 % Sodium Chloride 1,000 ML 999 ML IV (13:11)
[2024-06-17 13:53] VITALS: BP 112/66; PULSE 82; RESP 18; TEMP 36.9; O2SAT 96
== END 2024-06-17 13:54 | disposition home or self-care (01) ==
PROVIDERS: Emergency Provider Emergency Medicine
DX: B34.9 Viral infection, unspecified (principal); R11.2 Nausea with vomiting, unspecified; R10.2 Pelvic and perineal pain; Z03.818 Encounter for observation for suspected exposure to other biological agents ruled out; Z79.899 Other long term (current) drug therapy
CPT/HCPCS: 0241U; 74176; 80053; 81001; 85025; 87086; 87651; 99284

== ENCOUNTER 2024-12-24 15:41 | Emergency (ER) | payer SELFPAY ==
--- NOTE | 2024-12-24 16:12 | ED.GENADULT ---
HPI - General Adult General Chief complaint: Fever Stated complaint: Fever, weakness Related Data Previous Rx's ?Medication ?Instructions ?Recorded famotidine 20 mg tablet (Pepcid) 20 mg PO DAILY #14 tabs 07/28/22 prednisone 20 mg tablet 40 mg (2 x 20 mg) PO DAILY 5 days 07/28/22 #10 tabs loperamide 2 mg capsule 2 mg PO Q6H PRN loose stool #20 06/17/24 caps ondansetron HCl 4 mg tablet 4 mg PO Q8H PRN nausea and 06/17/24 vomiting #14 tabs Allergies Allergy/AdvReac Type Severity Reaction Status Date / Time bee pollen [BEE STINGS] Allergy Unknown UNKNOWN Verified 12/24/24 16:23 mushroom Allergy Unknown UNKNOWN Verified 12/24/24 16:23 shellfish derived Allergy Unknown UNKNOWN Verified 12/24/24 16:23 [SHELLFISH DERIVED] [facility] Past Medical History Medical History Heart murmur Asthma Social History Social History Alcohol intake: current Alcohol intake frequency: holidays/special occasions only Patient Tobacco Use Status: Never used Tobacco Advance Directives: No Advance Directives Information Provided: No Physical Exam ED Vital Signs: Vital Signs - 24 hr 12/24/24 16:18 Temperature 97.9 F Pulse Rate 68 Respiratory Rate 18 Blood Pressure 93/44 L Pulse Oximetry 98 Oxygen Delivery Method Room Air BMI result Body Mass Index 30.0 Course Course Course Narrative: This is an RME: Additional HPI, ROS, PE not included below will be deferred to primary provider. RME assessment and note performed by: Vanessa Horne PA-C This is a [id number]-male, with a hx of asthma, ASD, VSD who presents to the ER with complaints of nausea, vomiting, diarrhea and abdominal pain x 3 days. No recent travels. Denies etoh use. Patient reports that he did have a fever of 107.2. No tylenol/motrin today. Plan: Labs, Viral swabs, further ER eval needed Patient left without completing treatment. >>1800 - I have made multiple calls to patient's phone, left message for patient to return as patient's lactic was elevated at 3. No answer. Advised to immediately report to the emergency room. Medical Decision Making Lab Data 12/24/24 17:24 12/24/24 17:24 Labs: Lab Results 12/24/24 12/24/24 Range/Units 17:24 17:24 WBC 5.6 (4.8-10.8) X10*3/uL RBC 4.82 (4.60-5.80) X10*6/uL Hgb 16.8 (14.0-18.0) g/dl Hct 49.0 (42.0-52.0) % MCV 101.7 H (80.0-98.0) fL MCH 34.9 H (27.0-33.0) pg MCHC 34.3 (31.0-36.0) g/dl RDW 12.0 (11.0-16.0) % Plt Count 172 D (160-400) X10*3/uL MPV 9.5 (9.4-12.4) fL Immature Gran % (Auto) 0.2 (0.0-0.4) % Neut % (Auto) 69.2 (45-73) % Lymph % (Auto) 23.2 (20-40) % [place] % (Auto) 4.7 (2-11) % Eos % (Auto) 1.8 (0-4) % Baso % (Auto) 0.9 (0-2) % Lymph # (Auto) 1.3 (1.2-4.9) X10*3/uL [place] # (Auto) 0.3 (0.1-1.2) X10*3/uL Eos # (Auto) 0.1 (0.0-0.4) X10*3/uL Baso # (Auto) 0.1 (0.0-0.2) X10*3/uL Abs Immat Gran (auto) 0.01 (0.00-0.03) X10*3/uL Absolute Neuts (auto) 3.8 (2.0-8.3) x10*3/uL Absolute Nucleated RBC 0.000 (0.0-0.012) X10*3/uL Nucleated RBC % (auto) 0.0 (0.0-0.2) /100WBC Sodium 140 (135-145) mmol/L Potassium 4.1 (3.3-5.1) mmol/L Chloride 105 (96-108) mmol/L Carbon Dioxide 24 (22-29) mmol/L Anion Gap 15 (12-20) BUN 17 H (9-16) mg/dL Creatinine 1.30 (0.5-1.4) mg/dL Estim Creat Clear Calc 85.8 Estimated GFR > 60 Random Glucose 93 (60-115) mg/dL Lactic Acid 3.0 H* (0.5-2.0) mmol/L Calcium 9.0 D (8.4-10.2) mg/dL Magnesium 2.4 (1.6-2.6) mg/dL Troponin I High Sens < 2.7 (<3.5-35.0) ng/L Lipase 29 28 (8-78) U/L Influenza Type A (PCR) POSITIVE A (Negative) Influenza Type B (PCR) NEGATIVE (Negative) RSV RNA Qual (PCR) NEGATIVE (Negative) SARS-CoV-2 RNA (RT-PCR) NEGATIVE (Negative) Discharge Plan Discharge Clinical Impression: Diagnosis unknown Patient Disposition: Left W/O Completing Treatment Prescriptions: No Action famotidine [Pepcid] 20 mg tablet 20 mg PO DAILY Qty: 14 0RF prednisone 20 mg tablet 40 mg PO DAILY 5 Days Qty: 10 0RF loperamide 2 mg capsule 2 mg PO Q6H PRN (Reason: loose stool) Qty: 20 0RF ondansetron HCl 4 mg tablet 4 mg PO Q8H PRN (Reason: nausea and vomiting) Qty: 14 0RF Discharge Date/Time: 12/24/24 18:34
--- NOTE | 2024-12-24 16:16 | ECG_ITS ---
Test Reason : chest pain Blood Pressure : */* mmHG Vent. Rate : 61 BPM Atrial Rate : 61 BPM P-R Int : 222 ms QRS Dur : 94 ms QT Int : 402 ms P-R-T Axes : 44 16 45 degrees QTcB Int : 404 ms Sinus rhythm with 1st degree A-V block Otherwise normal ECG When compared with ECG of 28-Jul-2022 11:38, Vent. rate has decreased by 33 bpm Referred By: Vanessa Horne Electronically Signed By: FLORENTINO LOUISE
[2024-12-24 16:18] VITALS: BP 93/44; PULSE 68; RESP 18; TEMP 36.6; O2SAT 98
[2024-12-24 17:32] LABS: MANUAL DIFF FLAG NO
[2024-12-24 17:34] LABS: Basophils Absolute Auto 0.1 X10*3/uL (0.0-0.2); Basophils Percent Auto 0.9 % (0-2); Eosinophils Absolute Auto 0.1 X10*3/uL (0.0-0.4); Eosinophils Percent Auto 1.8 % (0-4); Hemoglobin 16.8 g/dl (14.0-18.0); Imm Gran Abs Auto 0.01 X10*3/uL (0.00-0.03); Imm Gran Pct Auto 0.2 % (0.0-0.4); Lymphocytes Absolute Auto 1.3 X10*3/uL (1.2-4.9); Lymphocytes Percent Auto 23.2 % (20-40); Mean Corpuscular HGB Conc 34.3 g/dl (31.0-36.0); Mean Corpuscular Hemoglobin 34.9 pg (27.0-33.0); Mean Corpuscular Volume 101.7 fL (80.0-98.0); Mean Platelet Volume 9.5 fL (9.4-12.4); Monocytes Absolute Auto 0.3 X10*3/uL (0.1-1.2); Monocytes Percent Auto 4.7 % (2-11); Neutrophils Absolute Auto 3.8 x10*3/uL (2.0-8.3); Neutrophils Percent Auto 69.2 % (45-73); Platelet Count 172 X10*3/uL (160-400); Red Blood Count 4.82 X10*6/uL (4.60-5.80); White Blood Count 5.6 X10*3/uL (4.8-10.8)
[2024-12-24 17:48] LABS: Anion Gap 15 (12-20); Blood Urea Nitrogen 17 mg/dL (9-16); Carbon Dioxide 24 mmol/L (22-29); Chloride 105 mmol/L (96-108); Creatinine Clr Calc Pharmacy 85.8; Estimated Glomerular Filt Rate > 60; Glucose Random 93 mg/dL (60-115); Lipase 28 U/L (8-78); Lipase 29 U/L (8-78); Magnesium 2.4 mg/dL (1.6-2.6); Potassium 4.1 mmol/L (3.3-5.1); Sodium 140 mmol/L (135-145)
[2024-12-24 17:58] LABS: Troponin-I High Sensitivity < 2.7 ng/L (<3.5-35.0)
--- NOTE | 2024-12-24 18:11 | PC.NURSE ---
no answer for main ER 181
[2024-12-24 18:13] LABS: Influenza A PCR POSITIVE (Negative); Influenza B PCR NEGATIVE (Negative); Resp Syncy Virus RNA Qual PCR NEGATIVE (Negative); SARS COV2 PCR INHOUSE NEGATIVE (Negative)
[2024-12-24 19:30] LABS: Reflex Lactate? Lactic Acid Added
== END 2024-12-24 18:34 | disposition left against medical advice (07) ==
PROVIDERS: Physician Assistant Medical; Emergency Provider Internal Medicine; PCP Nurse Practitioner Family
DX: J10.1 Influenza due to other identified influenza virus with other respiratory manifestations (principal); R50.9 Fever, unspecified; R53.1 Weakness; I44.0 Atrioventricular block, first degree; Z03.818 Encounter for observation for suspected exposure to other biological agents ruled out; J45.909 Unspecified asthma, uncomplicated
CPT/HCPCS: 0241U; 36415; 80048; 83605; 83690; 83735; 84484; 85025; 87040; 93005; 99281; 99283

== ENCOUNTER → 2024-12-24 16:16 | Outpatient (BNV) | payer SELFPAY | PROVIDERS: Emergency Provider Internal Medicine; PCP Nurse Practitioner Family; Visit Provider Internal Medicine | DX: R07.9 Chest pain, unspecified (principal) | CPT/HCPCS: 93010 ==